=== PATIENT | male | born 1960 | race Native Hawaiian/Other Pacific Islander ===

== ENCOUNTER 2020-04-11 09:13 | Outpatient (CLI) | payer OTHER | END 2020-04-11 19:19 | disposition home or self-care (01) | LOC: LAB 09:13 | DX: U07.1 COVID-19 (principal); R05 Cough; R09.89 Other specified symptoms and signs involving the circulatory and respiratory systems; R09.81 Nasal congestion; J02.9 Acute pharyngitis, unspecified; R50.9 Fever, unspecified | CPT/HCPCS: 87635; G2023; U0003 ==

== ENCOUNTER 2020-04-18 09:23 | Outpatient (CLI) | payer OTHER | END 2020-04-18 19:06 | disposition home or self-care (01) | LOC: LAB 09:23 | DX: Z11.59 Encounter for screening for other viral diseases (principal) | CPT/HCPCS: 87635; G2023; U0003 ==

== ENCOUNTER 2021-04-05 09:30 | Outpatient (CLI) | payer OTHER ==
[~2021-04-05] VITALS: Ht 182.9 cm; Wt 86.2 kg
== END 2021-04-05 22:12 | disposition home or self-care (01) ==
LOC: INF 09:30 → RAD 09:30 → INF 22:12
PROVIDERS: ATTEND Internal Medicine
DX: Z23 Encounter for immunization (principal); U07.1 COVID-19
CPT/HCPCS: 96365; M0244

== ENCOUNTER 2022-10-24 08:59 | Emergency (ER) | payer OTHER ==
[~2022-10-24] VITALS: Ht 182.9 cm; Wt 86.2 kg
[2022-10-24 08:59] VITALS: TEMP 97.8
[2022-10-24 09:29] LABS: PLATELET COUNT 205 K/uL (142-355)
[2022-10-24 09:37] LABS: POTASSIUM 3.3 mmol/L (3.6-5.2)
[2022-10-24 10:12] VITALS: BP 158/92
== END 2022-10-24 10:35 | disposition home or self-care (01) ==
LOC: ED 08:59
PROVIDERS: Emergency Medicine
DX: R07.89 Other chest pain (principal); I10 Essential (primary) hypertension; E87.6 Hypokalemia
CPT/HCPCS: 80053; 82550; 83880; 84484; 85027; 93005; 99284

== ENCOUNTER 2022-11-12 08:54 | Outpatient (CLI) | payer OTHER | END 2022-11-12 19:12 | disposition home or self-care (01) | LOC: RESP 08:54 | PROVIDERS: ATTEND Specialist | DX: R07.89 Other chest pain (principal); I10 Essential (primary) hypertension ==

== ENCOUNTER 2023-01-21 08:39 | Outpatient (CLI) | payer OTHER | END 2023-01-21 19:05 | disposition home or self-care (01) | LOC: RAD 08:39 | PROVIDERS: ATTEND Nurse Practitioner Family | DX: M25.471 Effusion, right ankle (principal); M25.571 Pain in right ankle and joints of right foot ==